=== PATIENT | male | born 1990 | race Caucasian/White ===

== ENCOUNTER 2023-04-10 09:50 | Emergency (ER) | payer BC ==
[~2023-04-10] VITALS: Ht 175.3 cm; Wt 98.2 kg
[2023-04-10 09:53] VITALS: BP 148/94; PULSE 79; RESP 18; TEMP 98.5; O2SAT 97
== END 2023-04-10 11:42 | disposition home or self-care (01) ==
LOC: ER 09:51
DX: M77.8 Other enthesopathies, not elsewhere classified (principal)
CPT/HCPCS: 73030; 99283